=== PATIENT | female | born 1985 | race Caucasian/White ===

== ENCOUNTER 2016-11-01 09:59 | Emergency (ER) | payer OTHER ==
[~2016-11-01] VITALS: Ht 157.5 cm; Wt 71.0 kg
[2016-11-01 10:02] VITALS: BP 116/62; PULSE 89; RESP 16; TEMP 99.2; O2SAT 98
[2016-11-01 10:34] LABS: BLOOD, URINE MOD (NEG); GLUCOSE,URINE NEG (NEG); KETONE, URINE NEG (NEG); NITRITE,URINE NEG (NEG)
[2016-11-01 10:39] LABS: METHOD OF COLLECTION CLEAN CATCH; URINE COLOR YELLOW (YELLW/STRAW)
[2016-11-01 10:40] LABS: BACTERIA, URINE FEW /hpf; COMMENT (UR) CULT NOT INDICATED; CULTURE IF INDICATED CULT NOT INDICATED; RBC, URINE 0-3 /hpf (0-3)
[2016-11-01 10:59] LABS: BETA HCG QUANT 77 MIU/ML (0-5)
--- NOTE | 2016-11-01 11:14 | PD ---
HPI Chief Complaint: Related Problem Time Seen by Provider: 10:18 Travel History International Travel<30 days: No Contact w/Intl Traveler<30days: No Traveled to known affect area: No History of Present Illness HPI 31-year-old female 4 para 2 known to be 4 weeks arrives with spotting after urination, pink discoloration on the toilet paper. She also describes cramping in the pelvis on both sides. No nausea vomiting fever chills vaginal discharge, flank pain. Duration several hours. PFSH Past Medical History Medical History: Denies Significant Hx Diminished Hearing: No Immunizations Current: Yes Tetanus Vaccination: < 5 Years Influenza Vaccination: No ?: LMP: 09/24/2016 : 3 Para: 2 Miscarriage: 1 : 0 Dilation and Curettage (D&C): Yes Social History Alcohol Use: Yes (RARELY) Tobacco Use: No Substance Use: No Allergies-Medications (Allergen,Severity, Reaction): Coded Allergies: acetaminophen (Unverified Allergy, Severe, Headache, 11/01/16) butalbital (Unverified Allergy, Severe, Headache, 11/01/16) caffeine (Unverified Allergy, Severe, Headache, 11/01/16) Reported Meds & Prescriptions Reported Meds & Active Scripts Active No Active Prescriptions or Reported Medications Review of Systems Except as stated in HPI: all other systems reviewed are Neg General / Constitutional: No: Fever Genitourinary: No: Urgency, Dysuria Physical Exam Narrative GENERAL: 31-year-old female well-nourished well-developed no acute distress SKIN: Warm and dry. HEAD: Atraumatic. Normocephalic. EYES: Pupils equal and round. No scleral icterus. No injection or drainage. ENT: No nasal bleeding or discharge. Mucous membranes pink and moist. NECK: Trachea midline. No JVD. CARDIOVASCULAR: Regular rate and rhythm. RESPIRATORY: No accessory muscle use. Clear to auscultation. Breath sounds equal bilaterally. GASTROINTESTINAL: Abdomen soft, non-tender, nondistended. Hepatic and splenic margins not palpable. MUSCULOSKELETAL: Extremities without clubbing, cyanosis, or edema. No obvious deformities. NEUROLOGICAL: Awake and alert. No obvious cranial nerve deficits. Motor grossly within normal limits. Five out of 5 muscle strength in the arms and legs. Normal speech. PSYCHIATRIC: Appropriate mood and affect; insight and judgment normal. Data Data Last Documented VS Vital Signs Date Time Temp Pulse Resp B/P (MAP) Pulse Ox O2 Delivery O2 Flow Rate FiO2 11/01/16 13:15 11/01/16 12:31 78 18 98 Room Air 11/01/16 10:02 99.2 Vital signs reviewed Orders Orders Beta Hcg (Quant/Titer) (11/01/16 10:19) Complete Rh (11/01/16 10:19) Urinalysis - C+S If Indicated (11/01/16 10:19) Us Pelvis (Ques Pr/Ect)W Trans (11/01/16 ) Labs Laboratory Tests Test 11/01/16 10:25 11/01/16 10:35 Urine Collection Type CLEAN CATCH Urine Color YELLOW Urine Turbidity CLEAR Urine pH 7.0 Urine Specific [place] 1.020 Urine Protein NEG mg/dL Urine Glucose (UA) NEG mg/dL Urine Ketones NEG mg/dL Urine Occult Blood MOD Urine Nitrite NEG Urine Bilirubin NEG Urine Leukocyte Esterase NEG Urine RBC 0-3 /hpf Urine WBC 3-5 /hpf Urine Squamous Epithelial Cells 6-8 /hpf Urine Bacteria FEW /hpf Microscopic Urinalysis Comment CULT NOT INDICATED Human Chorionic Gonadotropin, Quant 77 MIU/ML MDM Medical Decision Making Medical Screen Exam Complete: Yes Emergency Medical Condition: Yes Medical Record Reviewed: Yes Differential Diagnosis IUP, UTI, ectopic , ov torsion, appendicitis, TOA, cervicitis, BV, Trichomoniasis, ov cyst, hernia, mittelschmerz, pain from menstruation Narrative Course Blood type O positive UA: no UTI Last 24 hours Impressions Pelvis Ultrasound 11/01/16 0000 Signed Impressions: Service Date/Time: Tuesday, November 01, 2016 12:10 - CONCLUSION: 1. No intrauterine identified. 2. No significant adnexal mass. Small 1.4 cm cyst in the left ovary. 3. Trace posterior cul-de-sac free fluid. Albert Piper MD Beta 77 VS normal Abdomen soft Ectopic not suggested on imaging, exam or by history however viability of is indeterminate. Beta 77 could reflect earliest stages of or incomplete/threatened . 48 hour repeat beta d/w pt who is agreeable. Pt asymptomatic at time of reassessment just prior to discharge. Diagnosis Primary Impression: Threatened miscarriage in early Referrals: Juan Moore MD 2 days [facility] 2 days Additional Instructions: PLEASE FOLLOW UP WITH EMBROIDERY FINISHER IN 48 HOURS FOR A REPEAT BETA HCG TEST. Med/Other Pt SpecificInfo: Prescription(s) given Scripts No Active Prescriptions or Reported Meds Disposition: 01 DISCHARGE HOME Condition: Hector Radford MD Nov 01, 2016 11:14
[2016-11-01 12:31] VITALS: BP 103/64; PULSE 78; RESP 18; O2SAT 98
--- NOTE | 2016-11-01 12:55 | RADRPT ---
EXAM DATE/TIME: 11/01/2016 12:10 [place] COMPARISON: No previous studies available for comparison. INDICATIONS : Cramping and spotting for 1 day. LAB(S): Beta-hC MEDICAL HISTORY : . SURGICAL HISTORY : Dilation and curettage. ENCOUNTER: Initial ACUITY: 1 day PAIN SCORE: 1/10 LOCATION: Bilateral pelvis MEASUREMENTS: UTERUS: 7.9 x 4.5 x 5.1 cm ENDOMETRIAL STRIPE: 13 mm RIGHT OVARY: 2.8 x 2.2 x 1.9 cm LEFT OVARY: 3.4 x 1.9 x 2.3 cm FREE FLUID: Yes Trace in posterior cul-de-sac CROWN RUMP LENGTH: Non-visualized = WKS DAYS FHR: Non-visualized BPM FINDINGS: UTERUS: The myometrium has homogeneous echotexture without mass. The endometrial stripe is homogeneous but pr ominent in size measuring up to 13 mm. No evidence for intrauterine gestational sac. A small subcenti meter cyst near the cervix likely reflects a small nabothian cyst. RIGHT OVARY: Ovary contains no mass or significant cystic lesion. Normal vascularity. LEFT OVARY: Small 1.4 x 1.4 x 1.5 cm cyst in the mid left kidney. Normal vascularity. MISCELLANEOUS: Trace free fluid in the posterior cul-de-sac. CONCLUSION: 1. No intrauterine identified. 2. No significant adnexal mass. Small 1.4 cm cyst in the left ovary. 3. Trace posterior cul-de-sac free fluid. Albert Piper MD on November 01, 2016 at 12:49 Board Certified Radiologist. This report was verified electronically.
== END 2016-11-01 13:17 | disposition home or self-care (01) ==
LOC: PHED 09:59
DX: O20.0 Threatened abortion (principal); Z3A.01 Less than 8 weeks gestation of pregnancy
CPT/HCPCS: 76700; 76817; 81001; 84702; 86901

== ENCOUNTER 2016-11-01 15:14 | Emergency (ER) | payer OTHER ==
[2016-11-01 15:16] VITALS: BP 130/81; PULSE 89; RESP 17; TEMP 97.8; O2SAT 98
--- NOTE | 2016-11-01 15:49 | PD ---
HPI Chief Complaint: Related Problem Time Seen by Provider: 15:48 Travel History International Travel<30 days: No Contact w/Intl Traveler<30days: No Traveled to known affect area: No History of Present Illness HPI 31 YO 4 weeks by dates female presents to the ED for evaluation of right-sided, constant, cramping, 4/10 back pain and vaginal bleeding times a few hours. She states that she's passe brown, streaky blood and a few pieces of tissue. She denies fevers, chills, nausea, vomiting, dysuria, vaginal discharge. She was seen at [facility] this morning and diagnosed with threatened miscarriage. She states that her bleeding has worsened and is now accompanied by pain which caused her to seek reevaluation. The patient is a [employer] and refuses blood products. She had a previous miscarriage at 14-16 weeks that required a D&C. She is concerned that her bleeding may require transfusion. She denies dizziness, palpitations, shortness of breath, weakness of the extremities. PFSH Past Medical History Diminished Hearing: No Immunizations Current: Yes ?: : 4 Para: 2 Miscarriage: 1 : 0 Dilation and Curettage (D&C): Yes (x1) Social History Alcohol Use: Yes (RARELY) Tobacco Use: No Substance Use: No Allergies-Medications (Allergen,Severity, Reaction): Coded Allergies: acetaminophen (Unverified Allergy, Severe, Headache, 11/01/16) butalbital (Unverified Allergy, Severe, Headache, 11/01/16) caffeine (Unverified Allergy, Severe, Headache, 11/01/16) Reported Meds & Prescriptions Reported Meds & Active Scripts Active No Active Prescriptions or Reported Medications Review of Systems Except as stated in HPI: all other systems reviewed are Neg Physical Exam Narrative GENERAL: Well-nourished, well-developed female in no acute distress. SKIN: Focused skin assessment warm/dry. HEAD: Normocephalic. EYES: No scleral icterus. No injection or drainage. NECK: Supple, trachea midline. No JVD or lymphadenopathy. CARDIOVASCULAR: Regular rate and rhythm without murmurs, gallops, or rubs. RESPIRATORY: Breath sounds clear and equal bilaterally. No accessory muscle use. GASTROINTESTINAL: Abdomen soft, non-tender, nondistended. No suprapubic tenderness. Active bowel sounds. MUSCULOSKELETAL: No cyanosis, or edema. BACK: Nontender without obvious deformity. No CVA tenderness. Data Data Last Documented VS Vital Signs Date Time Temp Pulse Resp B/P (MAP) Pulse Ox O2 Delivery O2 Flow Rate FiO2 11/01/16 15:16 97.8 89 17 130/81 (97) 98 MDM Medical Decision Making Medical Screen Exam Complete: Yes Emergency Medical Condition: Yes Differential Diagnosis Vaginal bleeding in early versus threatened miscarriage versus ovarian torsion versus UTI versus other Narrative Course 31 YO 4 weeks by dates female presents to the ED for evaluation of right-sided, constant, cramping, 4/10 back pain and vaginal bleeding times a few hours. She states that she's passe brown, streaky blood and a few pieces of tissue. She denies fevers, chills, nausea, vomiting, dysuria, vaginal discharge. She was seen at [facility] this morning and diagnosed with threatened miscarriage. She states that her bleeding has worsened and is now accompanied by pain which caused her to seek reevaluation. LMP 09/24/2016 The patient is a Roman [employer] and refuses blood products. She had a previous miscarriage at 14-16 weeks that required a D&C. She is concerned that her bleeding may require transfusion. She denies dizziness, palpitations, shortness of breath, weakness of the extremities. Vitals within normal limits. Patient is well appearing. No abdominal, suprapubic or CVA tenderness. Review of the record reveals patient's UA was unremarkable, hCG 77 at this morning's visit. Transvaginal ultrasound reveals no intrauterine , no significant adnexal mass, 1.4 cm cyst on the left ovary. I educated the patient on the course of threatened miscarriage. She is describing light bleeding for the last few hours. She denies any chronic anemia. Hemorrhagic anemia is unlikely. The patient is instructed to [facility]- [facility] for repeat hCG. We discussed reasons to return to the ED. The patient and her mother were reassured by our conversation. She is stable and discharged home. Diagnosis Primary Impression: Vaginal bleeding in patient at less than 20 weeks gestation Additional Impression: Threatened miscarriage in early Referrals: Juan Moore MD [facility] Patient Instructions: General Instructions, Threatened Miscarriage (ED) Departure Forms: Tests/Procedures, Work Release Enter return to work date: Nov 04, 2016 Additional Instructions: Rest, hydrate. Return to normal, gentle activity as tolerated. [facility] with [facility] as discussed. Return to the ED for any urgent or emergent medical condition. Scripts No Active Prescriptions or Reported Meds Disposition: 01 DISCHARGE HOME Condition: Stable Lauryn Angelo Nov 01, 2016 15:49
[2016-11-01 16:55] VITALS: BP 109/67
== END 2016-11-01 16:57 | disposition home or self-care (01) ==
LOC: NEPE 15:14
DX: O20.0 Threatened abortion (principal); N93.9 Abnormal uterine and vaginal bleeding, unspecified
CPT/HCPCS: 99281

== ENCOUNTER 2016-11-03 09:29 | Emergency (ER) | payer OTHER ==
[~2016-11-03] VITALS: Ht 157.5 cm; Wt 71.0 kg
[2016-11-03 09:35] VITALS: BP 127/65; PULSE 80; RESP 16; TEMP 98.9; O2SAT 99
--- NOTE | 2016-11-03 10:19 | PD ---
HPI Chief Complaint: Related Problem Time Seen by Provider: 09:53 Travel History International Travel<30 days: No Contact w/Intl Traveler<30days: No Traveled to known affect area: No History of Present Illness HPI This 31-year-old female was told to return for recheck of a beta hCG. She was a patient here yesterday. She had had some vaginal bleeding. Her last period was September 25 to . She had had a positive test last Thursday. Yesterday she had some vaginal bleeding and lower abdominal cramping. She was seen here in the emergency room. Her beta titer was 77. An ultrasound was done. There is no IUP. There are no adnexal masses. There is a small 1.4 cm cyst on the left ovary had a trace of fluid in the cul-de-sac. She has had some light vaginal bleeding since [facility] Past Medical History Medical History: Denies Significant Hx Diminished Hearing: No Immunizations Current: Yes Influenza Vaccination: No ?: : 4 Para: 2 Miscarriage: 1 : 0 Dilation and Curettage (D&C): Yes (x1) Past Surgical History Surgical History: No Previous Surgery Social History Alcohol Use: Yes (RARELY) Tobacco Use: No Substance Use: No Allergies-Medications (Allergen,Severity, Reaction): Coded Allergies: acetaminophen (Unverified Allergy, Severe, Headache, 11/03/16) butalbital (Unverified Allergy, Severe, Headache, 11/03/16) caffeine (Unverified Allergy, Severe, Headache, 11/03/16) Reported Meds & Prescriptions Reported Meds & Active Scripts Active No Active Prescriptions or Reported Medications Review of Systems General / Constitutional: No: Fever, Chills Cardiovascular: No: Chest Pain or Discomfort Gastrointestinal: No: Nausea Genitourinary: Positive: Vaginal Bleeding, No: Frequency Physical Exam Narrative GENERAL: Well-developed female SKIN: Focused skin assessment warm/dry. HEAD: Atraumatic. Normocephalic. EYES: Pupils equal and round. No scleral icterus. No injection or drainage. ENT: No nasal bleeding or discharge. Mucous membranes pink and moist. NECK: Trachea midline. No JVD. GASTROINTESTINAL: Abdomen soft, non-tender, nondistended. Hepatic and splenic margins not palpable. MUSCULOSKELETAL: No obvious deformities. No clubbing. No cyanosis. No edema. NEUROLOGICAL: Awake and alert. No obvious cranial nerve deficits. Normal speech. PSYCHIATRIC: Appropriate mood and affect; insight and judgment normal. Data Data Last Documented VS Vital Signs Date Time Temp Pulse Resp B/P (MAP) Pulse Ox O2 Delivery O2 Flow Rate FiO2 11/03/16 09:35 98.9 80 16 127/65 (85) 99 Room Air Orders Orders Beta Hcg (Quant/Titer) (11/03/16 10:12) Labs Laboratory Tests Test 11/03/16 10:31 Human Chorionic Gonadotropin, Quant 135 MIU/ML MDM Medical Decision Making Medical Screen Exam Complete: Yes Emergency Medical Condition: Yes Medical Record Reviewed: Yes Differential Diagnosis Differential includes incomplete AB, early , ectopic Narrative Course Her beta titer today is 135 which is higher than it was yesterday. I have spoken with the patient. It does not appear that she has had a miscarriage at this point. This may be a viable IUP though I have stressed to her that we could not rule out ectopic and that she should develop any symptoms of weakness dizziness or increasing abdominal pain she needs to return for evaluation Diagnosis Primary Impression: Additional Instructions: Return to ED if increasing abdominal pain, lightheaded, dizzy Scripts No Active Prescriptions or Reported Meds Disposition: 01 DISCHARGE HOME Condition: Stable Devin Ojeda MD Nov 03, 2016 10:19
[2016-11-03 11:01] LABS: BETA HCG QUANT 135 MIU/ML (0-5)
[2016-11-03 11:23] VITALS: BP 120/74
== END 2016-11-03 11:29 | disposition home or self-care (01) ==
LOC: PHED 09:29
DX: O26.90 Pregnancy related conditions, unspecified, unspecified trimester (principal); N93.9 Abnormal uterine and vaginal bleeding, unspecified
CPT/HCPCS: 84702; 99281

== ENCOUNTER 2016-11-12 09:36 | Emergency (ER) | payer OTHER ==
[~2016-11-12] VITALS: Ht 160 cm; Wt 70.5 kg
[2016-11-12 09:45] VITALS: BP 113/72; PULSE 99; RESP 15; TEMP 99.2; O2SAT 99
[2016-11-12] MEDS ORDERED: PREN29TA PO (10:57)
--- NOTE | 2016-11-12 11:04 | PD ---
HPI Chief Complaint: Related Problem Time Seen by Provider: 10:47 Travel History International Travel<30 days: No Contact w/Intl Traveler<30days: No Traveled to known affect area: No History of Present Illness HPI Patient is a 31-year-old female who is [id number], presents to ER for evaluation of vaginal spotting. Patient reports that she is about 5 weeks , her first day of her last mental cycle was on September 25, 2016. Patient reports that for the past 2 weeks, she has been having irregular vaginal spotting. Patient reports that she did stop spotting yesterday. Patient reports concerns as she has some vaginal pruritus today. She reports that she was seen in the emergency room on November 01 for irregular vaginal spotting, reports that her hCG Quant at that time was 77. Patient reports she returned to the emergency room 2 days later and her hCG Quant was 135 on November 03, 2016. Patient does have an appointment with [facility] on Thursday for first OB appointment. Patient denies any lightheadedness or dizziness, denies any abdominal pain, or nausea vomiting this time. PFSH Past Medical History Medical History: Denies Significant Hx Diminished Hearing: No Immunizations Current: Yes Tetanus Vaccination: < 5 Years Influenza Vaccination: No ?: LMP: September 25 : 4 Para: 2 Miscarriage: 1 : 0 Dilation and Curettage (D&C): Yes (X's 1) Past Surgical History Gynecologic Surgery: Yes (D&C X1) Social History Alcohol Use: No Tobacco Use: No Substance Use: No Allergies-Medications (Allergen,Severity, Reaction): Coded Allergies: acetaminophen (Unverified Allergy, Severe, Headache, 11/12/16) butalbital (Unverified Allergy, Severe, Headache, 11/12/16) caffeine (Unverified Allergy, Severe, Headache, 11/12/16) Reported Meds & Prescriptions Reported Meds & Active Scripts Active Macrobid (Nitrofurantoin Monoh/Nitrofur Macro) 100 Mg Cap 100 Mg PO BID Reported Plus Iron 29-1 mg ( Vit-Iron Carbonyl) 29 Mg Iron-1 Mg Tab 1 Tab PO DAILY Review of Systems General / Constitutional: No: Fever Eyes: No: Visual changes HENT: No: Headaches Cardiovascular: No: Chest Pain or Discomfort Respiratory: No: Shortness of Breath Gastrointestinal: No: Abdominal Pain Genitourinary: Positive: Vaginal Bleeding, No: Dysuria, Pelvic Pain, Dyspareunia, Discharge Musculoskeletal: No: Pain Skin: No Rash Neurologic: No: Weakness Psychiatric: No: Depression Endocrine: No: Polydipsia Hematologic/Lymphatic: No: Easy Bruising Physical Exam Narrative GENERAL: NAD SKIN: Focused skin assessment warm/dry. HEAD: Atraumatic. Normocephalic. EYES: Pupils equal and round. No scleral icterus. No injection or drainage. ENT: No nasal bleeding or discharge. Mucous membranes pink and moist. NECK: Trachea midline. No JVD. CARDIOVASCULAR: Regular rate and rhythm. No murmur appreciated. RESPIRATORY: No accessory muscle use. Clear to auscultation. Breath sounds equal bilaterally. GASTROINTESTINAL: Abdomen soft, non-tender, nondistended. Hepatic and splenic margins not palpable. : pelvic exam performed with RN at bedside, patient with no cmt or adnexal tenderness, patient with mild light brown blood in vaginal vault MUSCULOSKELETAL: No obvious deformities. No clubbing. No cyanosis. No edema. NEUROLOGICAL: Awake and alert. No obvious cranial nerve deficits. Motor grossly within normal limits. Normal speech. PSYCHIATRIC: Appropriate mood and affect; insight and judgment normal. Data Data Last Documented VS Vital Signs Date Time Temp Pulse Resp B/P (MAP) Pulse Ox O2 Delivery O2 Flow Rate FiO2 11/12/16 09:45 99.2 99 15 113/72 (86) 99 Orders Orders Beta Hcg (Quant/Titer) (11/12/16 10:56) Gc And Chlamydia Pcr (11/12/16 10:56) Wet Prep Profile (11/12/16 10:56) Urinalysis - C+S If Indicated (11/12/16 10:56) Ed Urine Pregnancytest Poc (11/12/16 10:56) Basic Metabolic Panel (Bmp) (11/12/16 10:56) Complete Blood Count With Diff (11/12/16 10:56) Urine Culture (11/12/16 11:00) Ceftriaxone Inj (Rocephin Inj) (11/12/16 12:30) Labs Laboratory Tests Test 11/12/16 11:00 11/12/16 11:15 11/12/16 11:40 Urine Collection Type CLEAN CATCH Urine Color YELLOW Urine Turbidity SLIGHT Urine pH 8.0 Urine Specific [place] 1.025 Urine Protein TRACE mg/dL Urine Glucose (UA) NEG mg/dL Urine Ketones NEG mg/dL Urine Occult Blood LARGE Urine Nitrite NEG Urine Bilirubin NEG Urine Leukocyte Esterase NEG Urine RBC 25-49 /hpf Urine WBC 6-8 /hpf Urine Squamous Epithelial Cells > 8 /hpf Urine Bacteria MANY /hpf Microscopic Urinalysis Comment CULTURE INDICATED Urine Collection Time 11:00 White Blood Count 8.1 TH/MM3 Red Blood Count 4.31 MIL/MM3 Hemoglobin 12.9 GM/DL Hematocrit 38.3 % Mean Corpuscular Volume 88.7 FL Mean Corpuscular Hemoglobin 29.8 PG Mean Corpuscular Hemoglobin Concent 33.6 % Red Cell Distribution Width 12.8 % Platelet Count 253 TH/MM3 Mean Platelet Volume 8.3 FL Neutrophils (%) (Auto) 46.2 % Lymphocytes (%) (Auto) 40.5 % Monocytes (%) (Auto) 8.8 % Eosinophils (%) (Auto) 2.8 % Basophils (%) (Auto) 1.7 % Neutrophils # (Auto) 3.8 TH/MM3 Lymphocytes # (Auto) 3.3 TH/MM3 Monocytes # (Auto) 0.7 TH/MM3 Eosinophils # (Auto) 0.2 TH/MM3 Basophils # (Auto) 0.1 TH/MM3 CBC Comment DIFF FINAL Differential Comment Blood Urea Nitrogen 11 MG/DL Creatinine 0.57 MG/DL Random Glucose 87 MG/DL Calcium Level 8.7 MG/DL Sodium Level 138 MEQ/L Potassium Level 3.9 MEQ/L Chloride Level 104 MEQ/L Carbon Dioxide Level 27.5 MEQ/L Anion Gap 7 MEQ/L Estimat Glomerular Filtration Rate 124 ML/MIN Human Chorionic Gonadotropin, Quant 147 MIU/ML Clue Cells (Wet Prep) NONE SEEN Vaginal Trichomonas (Wet Prep) NONE SEEN Vaginal Yeast (Wet Prep) NONE SEEN MDM Medical Decision Making Medical Screen Exam Complete: Yes Emergency Medical Condition: Yes Medical Record Reviewed: Yes Interpretation(s) Vital Signs Date Time Temp Pulse Resp B/P (MAP) Pulse Ox O2 Delivery O2 Flow Rate FiO2 11/12/16 09:45 99.2 99 15 113/72 (86) 99 Differential Diagnosis Differential includes threatened miscarriage versus inevitable miscarriage versus cervicitis versus yeast infection Narrative Course 31-year-old female who is [id number], presents to emergency room with complaints of vaginal spotting for the past 2 weeks as well as vaginal pruritus. Pelvic ultrasound on November 01 showed no IUP. HCG Quant on November 01, 2016 was 77 HCG quant on November 03, 2016 was 135 Her blood type is O+ Patient reports resolution of vaginal spotting yesterday. Plan to obtain pelvic exam to evaluate for possible cervicitis. CBC ordered to evaluate for blood count. HCG Quant ordered CBC & BMP Diagram 11/12/16 11:15 Calcium Level 8.7 HCG quant 147 Copies of patient studies were given to her at discharge Microbiology Date/Time Source Procedure Growth Status 11/12/16 11:00 Urine Clean Catch Urine Culture Pending Received UA with 6-8 white blood cells, many red blood cells, large blood, urine culture sent, IV Rocephin given for UTI, will discharge patient home with Macrobid. Wet prep prep negative, Trichomonas negative, yeast negative GC pending. Patient will need to follow-up with her financial representative as scheduled as hCG Quant is mildly elevated at 147 compared to her last visit on November 03 as HCG quant at that time was 135. Discuss concerns for threatened miscarriage as patient reports that her hCG Quant at [facility] was in the 200s last week. Discussed need for pelvic rest. Understands that if she has return of bleeding, she is to return to the emergency room She will follow-up with all cultures from today. Signs and symptoms of when to return to the emergency room was reviewed patient in detail. Diagnosis Primary Impression: Threatened miscarriage Additional Impression: UTI (urinary tract infection) Qualified Codes: N30.01 - Acute cystitis with hematuria Patient Instructions: General Instructions Departure Forms: Tests/Procedures, Work Release Enter return to work date: Nov 13, 2016 Additional Instructions: Please provide patient with a copy of her studies at discharge Please bring a copy of the lab work to your BULL FLOAT FINISHER's appointment as you will need follow-up as well as a repeat hCG Quant and repeat pelvic ultrasound Your hCG Quant was 147 today Return to emergency room if symptoms return or worsen Return to the emergency room as needed Pelvic rest until you're seen and cleared by her B[employer] FLOAT FINISHER Please follow-up with all cultures from today as GC is pending as well as urine culture is pending Please take all antibiotics as prescribed Med/Other Pt SpecificInfo: Prescription(s) given Scripts Nitrofurantoin Monohydrate Macrocrystals (Macrobid) 100 Mg Cap 100 MG PO BID for Infection, #10 CAP 0 Refills Prov: Keyonna Henderson DO 11/12/16 Disposition: 01 DISCHARGE HOME Condition: Stable Keyonna Henderson DO Nov 12, 2016 11:04
[2016-11-12 11:22] LABS: BLOOD, URINE LARGE (NEG); GLUCOSE,URINE NEG (NEG); KETONE, URINE NEG (NEG); NITRITE,URINE NEG (NEG)
[2016-11-12 11:22] LABS: AUTOMATED NEUTROPHIL # 3.8 TH/MM3 (1.8-7.7); BASOPHIL # 0.1 TH/MM3 (0-0.2); BASOPHIL % 1.7 % (0.0-2.0); EOSINOPHIL # 0.2 TH/MM3 (0-0.4); EOSINOPHIL % 2.8 % (0.0-4.0); HEMATOCRIT 38.3 % (35.0-46.0); HEMO FLAGS DIFF FINAL; LYMPH % 40.5 % (9.0-44.0); LYMPHOCYTE # 3.3 TH/MM3 (1.0-4.8); MEAN CELL VOLUME 88.7 FL (80.0-100.0); MEAN CORPUSCULAR HEMOGLOBIN 29.8 PG (27.0-34.0); MEAN CORPUSCULAR HGB CONC 33.6 % (32.0-36.0); MONO % 8.8 % (0.0-8.0); NEUT % 46.2 % (16.0-70.0); PLATELET COUNT 253 TH/MM3 (150-450); RED BLOOD COUNT 4.31 MIL/MM3 (4.00-5.30); RED CELL DISTRIBUTION WIDTH 12.8 % (11.6-17.2); WHITE BLOOD COUNT 8.1 TH/MM3 (4.0-11.0)
[2016-11-12 11:26] LABS: METHOD OF COLLECTION CLEAN CATCH; URINE COLOR YELLOW (YELLW/STRAW)
[2016-11-12 11:28] LABS: BACTERIA, URINE MANY /hpf; SQUAMOUS EPITHELIAL CELL URINE > 8 /hpf (0-5)
[2016-11-12 11:29] LABS: COMMENT (UR) CULTURE INDICATED; CULTURE IF INDICATED CULTURE INDICATED
[2016-11-12 11:32] LABS: POTASSIUM 3.9 MEQ/L (3.5-5.1)
[2016-11-12 11:34] LABS: BICARBONATE 27.5 MEQ/L (21.0-32.0)
[2016-11-12] MEDS ORDERED: MACR100C2 PO (12:20)
[2016-11-12] MEDS ORDERED: LIDOCAINE HCL 1% 50 ML VIAL IM ONE (12:30)
[2016-11-12] MEDS ORDERED: cefTRIAXone INJ 1,000 MG in SODIUM CHLORIDE 0.9% INJ 100 ML IV ONE (12:30)
[2016-11-12 12:35] VITALS: BP 111/66; PULSE 92; RESP 14; O2SAT 100
[2016-11-12 16:13] LABS: CHLAMYDIA PCR NOT DETECTED (NOT DETECT); NEISSERIA PCR NOT DETECTED (NOT DETECT)
== END 2016-11-12 13:05 | disposition home or self-care (01) ==
LOC: PHED 09:36
DX: O20.0 Threatened abortion (principal); O23.11 Infections of bladder in pregnancy, first trimester; Z3A.01 Less than 8 weeks gestation of pregnancy
CPT/HCPCS: 80048; 81001; 84702; 84703; 85025; 87086; 87210; 87491; 87591; 96372; 99284; J0696

== ENCOUNTER 2016-11-20 15:55 | Emergency (ER) | payer OTHER ==
[~2016-11-20] VITALS: Ht 157.5 cm; Wt 70.0 kg
[~2016-11-20 15:55] MED LIST: MACR100C2 PO; PREN29TA PO
[2016-11-20 15:57] VITALS: BP 117/64; PULSE 84; RESP 15; TEMP 98.5; O2SAT 99
[2016-11-20 17:59] VITALS: BP 107/62; PULSE 66; RESP 18; TEMP 97.7; O2SAT 99
--- NOTE | 2016-11-20 18:06 | PD ---
HPI Chief Complaint: Related Problem Time Seen by Provider: 18:04 Travel History International Travel<30 days: No Contact w/Intl Traveler<30days: No Traveled to known affect area: No History of Present Illness HPI 31-year-old female presents to emergency department for evaluation. Patient reports that she has been spotting since she first found out she was . She states that she was diagnosed with a threatened miscarriage. Her bleeding increased and she bled quite heavily for 7-10 days. She states this resolved and she has light spotting now. Her beta hCG on November 12, 2016 here was 147. She states she followed up with her primary care provider Dr. Avila yesterday who repeated the beta and she tells me it was lower. She would like to know if she has had the miscarriage or not. She does have follow-up with OB/ [facility] on Thursday, in 4 days. She denies any abdominal pain. No urinary symptoms. She does have intermittent cramping but is asymptomatic at this time. She has no other symptoms to report. History Past Medical Histgory Medical History: Denies Significant Hx Social History Alcohol Use: No Tobacco Use: No Allergies-Medications (Allergen,Severity, Reaction): Coded Allergies: acetaminophen (Unverified Allergy, Severe, Headache, 11/20/16) butalbital (Unverified Allergy, Severe, Headache, 11/20/16) caffeine (Unverified Allergy, Severe, Headache, 11/20/16) Reported Meds & Prescriptions Reported Meds & Active Scripts Active Macrobid (Nitrofurantoin Monoh/Nitrofur Macro) 100 Mg Cap 100 Mg PO BID Reported Plus Iron 29-1 mg ( Vit-Iron Carbonyl) 29 Mg Iron-1 Mg Tab 1 Tab PO DAILY Review of Systems Except as stated in HPI: all other systems reviewed are Neg Physical Exam Narrative GENERAL: Well-nourished female patient, in no acute distress SKIN: Focused skin assessment warm/dry. HEAD: Atraumatic. Normocephalic. EYES: Pupils equal and round. No scleral icterus. No injection or drainage. ENT: No nasal bleeding or discharge. Mucous membranes pink and moist. NECK: Trachea midline. No JVD. CARDIOVASCULAR: Regular rate and rhythm. No murmur appreciated. RESPIRATORY: No accessory muscle use. Clear to auscultation. Breath sounds equal bilaterally. GASTROINTESTINAL: Abdomen soft, non-tender, nondistended. No guarding. No rebound tenderness. Hepatic and splenic margins not palpable. MUSCULOSKELETAL: No obvious deformities. No clubbing. No cyanosis. No edema. NEUROLOGICAL: Awake and alert. No obvious cranial nerve deficits. Motor grossly within normal limits. Normal speech. PSYCHIATRIC: Appropriate mood and affect; insight and judgment normal. Data Data Last Documented VS Vital Signs Date Time Temp Pulse Resp B/P (MAP) Pulse Ox O2 Delivery O2 Flow Rate FiO2 11/20/16 17:59 97.7 66 18 107/62 (77) 99 Room Air MDM Medical Screen Exam Complete: Yes Emergency Medical Condition: No Differential Diagnosis Missed ; vaginal spotting Narrative Course 31-year-old female presents to the emergency department for evaluation. Patient was diagnosed with a threatened on November 12, 2016. Bleeding assisted but is now a light spotting. She has an appointment with OB/ [facility] on Thursday. She tells me that her beta-hCG through her primary care provider yesterday was lower than it was here on the . This is likely a missed . With no pain and a negative abdominal assessment, the patient can follow-up with her [facility] on Thursday. She verbalizes understanding to return immediately with any acute worsening of symptoms. At this time there are no urgent or emergent needs for medical intervention identified. A medical screening exam was performed: At the time of evaluation the presenting medical condition was determined not to be of an emergent nature. The patient was given the option of receiving additional care, but declined. Patient was given options for additional community resources from which to obtain care. The Patient Has Been advised to seek medical attention for their presenting complaint. The patient has been advised to return to the ER at any time if an emergent condition develops. Primary Impression: Encounter for medical screening examination Condition: Shabnam Ramesh Nov 20, 2016 18:06
== END 2016-11-20 18:32 | disposition left against medical advice (07) ==
LOC: NEPD 15:55
DX: O26.859 Spotting complicating pregnancy, unspecified trimester (principal)
CPT/HCPCS: 99281